=== PATIENT | female | born 1950 | race Caucasian/White ===

== ENCOUNTER 2018-05-28 09:17 | Outpatient (CLI) | payer OTHER ==
[2018-05-28 09:38] LABS: BASOPHILS % 0.4 (0.0-1.5); EOSINOPHILS % 5.5 % (0.0-6.8); MEAN CORPUSCULAR HEMOGLOBIN 28.9 pg (28.0-34.0); MONOCYTES % 5.3 % (0.0-11.0); NEUTROPHILS # 6.9 # k/uL (1.4-7.7)
[2018-05-28 10:29] LABS: eGFR (Non-African) > 60
== END 2018-05-28 09:20 ==
LOC: LAB 09:17
PROVIDERS: ATTEND Family Medicine
DX: I10 Essential (primary) hypertension (principal); E11.9 Type 2 diabetes mellitus without complications; E78.1 Pure hyperglyceridemia
CPT/HCPCS: 36415; 80053; 80061; 83036; 85025

== ENCOUNTER 2018-06-15 07:21 | Day surgery (SDC) | payer OTHER ==
[2018-06-15] MEDS ORDERED: PROPOFOL 200 MG/20 ML VIAL IV ONE (08:48)
--- NOTE | 2018-06-15 14:07 | GI Report ---
REFERRING PHYSICIAN: Dr. Jason Vann [employer] MILL OPERATOR: Abe German MD PROCEDURE MEDICATION: Propofol as per anesthesia. INDICATIONS: This 67-year-old woman is referred for a colonoscopy. This is her first colonoscopy. She denies change in bowel habits. She may have had a second- degree relative with colorectal cancer. She is a diabetic and is on oral medications. PROCEDURE PERFORMED: Colonoscopy, polypectomy, and biopsy. PROCEDURE: An Olympus video colonoscope was advanced to the rectum and slowly advanced all the way to the cecum. The appendiceal orifice and terminal ileum were normal. On slow withdrawal, the cecum, ascending colon, and transverse colon with no obvious intraluminal lesions noted. The descending colon and sigmoid, again, some redundancy. No obvious intraluminal lesions were noted. In the rectum, there was a 2 to 3 mm flat polyp that was cold biopsy removed and submitted to pathology. Patient tolerated the procedure well. FINDINGS: Rectal polyp cold biopsy removed. RECOMMENDATIONS: 1. A high-fiber diet. 2. Considering the pathology of the polyp, she needs her colon re-looked at again in 5 to 10. Ten years if it is hyperplastic and 5 years if it is adenomatous. cc: Dr. Jason TRIMBLE
== END 2018-06-15 07:22 ==
LOC: OPSURG 07:21
PROVIDERS: ATTEND Internal Medicine Gastroenterology
DX: Z12.11 Encounter for screening for malignant neoplasm of colon (principal); K62.1 Rectal polyp; Z80.0 Family history of malignant neoplasm of digestive organs; E11.9 Type 2 diabetes mellitus without complications; Z79.84 Long term (current) use of oral hypoglycemic drugs
CPT/HCPCS: 45380; 88305; J2704; S1016